=== PATIENT | male | born 1955 | race Caucasian/White ===

== ENCOUNTER 2016-09-12 15:06 | Emergency (ER) | payer OTHER ==
[~2016-09-12] VITALS: Ht 170.2 cm; Wt 73.7 kg
[2016-09-12 15:15] VITALS: BP 142/87; PULSE 89; RESP 18; TEMP 98.5; O2SAT 95
[2016-09-12] MEDS ORDERED: ASPI325T PO (16:02)
--- NOTE | 2016-09-12 16:23 | PD ---
HPI Chief Complaint: Oral / Dental Pain or Problem Time Seen by Provider: 16:22 Travel History International Travel<30 days: No Contact w/Intl Traveler<30days: No Traveled to known affect area: No History of Present Illness HPI 61 year old male presents to the ED for evaluation of less than 24 hours of dental pain and swelling in the jaw and neck. Patient states pain woke him up at 3 this morning. He endorses poor dentition. He denies fever or chills. Denies difficulties opening and closing the mouth or swallowing his own secretions. Denies difficulties breathing. States he went to the dentist today and was told that he could not be treated until the infection was resolved. Patient is a current smoker. No treatment attempted at home. Endorses allergy to penicillin. PFSH Past Medical History Cardiac Catheterization: Yes (STENT) Cardiovascular Problems: Yes Medical other: Yes (HYPOGLYCEMIA, HYPERLIPIDEMIA) Myocardial Infarction: Yes (x2) Tetanus Vaccination: Unknown Influenza Vaccination: No Past Surgical History Tonsillectomy: Yes Other Surgery: Yes (HERNIA REMOVAL) Social History Alcohol Use: Yes (SOCIALLY) Tobacco Use: Yes (1PPD) Substance Use: No Allergies-Medications (Allergen,Severity, Reaction): Coded Allergies: Penicillin (Verified Allergy, Severe, HIVES, 09/12/16) Latex (Verified Allergy, Intermediate, HIVES, 09/12/16) Reported Meds & Prescriptions Reported Meds & Active Scripts Active Magic Mouthwash Adult Liq (Multi-Ingredient Mouthwash/Gargle) 120 Ml Susp 5 Ml SWISH-SWAL ACHS PRN Each 5mL contains: Nystatin 200,000units, Diphenhydramine 4.25mg, Viscous Lidocaine 10mg, Galindo syrup 0.8 mL Ibuprofen 800 Mg Tab 800 Mg PO Q8H PRN Clindamycin (Clindamycin HCl) 300 Mg Cap 300 Mg PO Q6H 7 Days Reported Aspirin 325 Mg Tab 325 Mg PO DAILY Review of Systems Except as stated in HPI: all other systems reviewed are Neg Physical Exam Narrative GENERAL: Well-nourished, well-developed white male in no acute distress. SKIN: Warm and dry. HEAD: Normocephalic. Atraumatic. EYES: No scleral icterus. No injection or drainage. PERRLA. EOMI. ENT: Pearly watson tympanic membranes bilaterally. Nasal mucosa is moist. Oropharynx without erythema, edema or exudate. DENTAL: No malocclusion. Poor dentition overall. There is a dental caries and tooth 32. Mild erythema of the surrounding gingiva. Floor of mouth is soft. Uvula midline. Airway patent. NECK: Supple, trachea midline. Tender edema of the right anterior neck. Positive right-sided lymphadenopathy. CARDIOVASCULAR: Regular rate and rhythm without murmurs, gallops, or rubs. No carotid bruits. 2+ DP and radial pulses bilaterally. RESPIRATORY: Breath sounds clear and equal bilaterally. No accessory muscle use. GASTROINTESTINAL: Abdomen soft, non-tender, nondistended. + Bowel sounds MUSCULOSKELETAL: No cyanosis, or edema. Patient is ambulatory moves extremities spontaneously. BACK: Nontender without obvious deformity. No CVA tenderness. Data Data Last Documented VS Vital Signs Date Time Temp Pulse Resp B/P Pulse Ox O2 Delivery O2 Flow Rate FiO2 09/12/16 18:00 16 09/12/16 15:15 98.5 89 142/87 95 Orders Basic Metabolic Panel (Bmp) (09/12/16 16:28) Complete Blood Count With Diff (09/12/16 16:28) Blood Culture (09/12/16 16:28) Ct Soft Tiss Neck W Iv Cont (09/12/16 16:28) Iv Access Insert/Monitor (09/12/16 16:28) Clindamycin Inj (Cleocin Inj) (09/12/16 16:30) Sodium Chloride 0.9% Flush (Ns Flush) (09/12/16 16:30) Morphine Inj (Morphine Inj) (09/12/16 17:15) Dexamethasone Inj (Decadron Inj) (09/12/16 17:30) Labs Laboratory Tests Test 09/12/16 09/12/16 16:57 16:59 Sodium Level 140 MEQ/L Potassium Level 3.6 MEQ/L Chloride Level 105 MEQ/L Carbon Dioxide Level 27.2 MEQ/L Anion Gap 8 MEQ/L Blood Urea Nitrogen 9 MG/DL Creatinine 1.00 MG/DL Estimat Glomerular Filtration 75 ML/MIN Rate Random Glucose 102 MG/DL Calcium Level 8.4 MG/DL White Blood Count 11.0 TH/MM3 Red Blood Count 4.44 MIL/MM3 Hemoglobin 14.1 GM/DL Hematocrit 40.5 % Mean Corpuscular Volume 91.2 FL Mean Corpuscular Hemoglobin 31.9 PG Mean Corpuscular Hemoglobin 35.0 % Concent Red Cell Distribution Width 13.4 % Platelet Count 222 TH/MM3 Mean Platelet Volume 7.2 FL Neutrophils (%) (Auto) 64.4 % Lymphocytes (%) (Auto) 20.8 % Monocytes (%) (Auto) 10.7 % Eosinophils (%) (Auto) 2.9 % Basophils (%) (Auto) 1.2 % Neutrophils # (Auto) 7.1 TH/MM3 Lymphocytes # (Auto) 2.3 TH/MM3 Monocytes # (Auto) 1.2 TH/MM3 Eosinophils # (Auto) 0.3 TH/MM3 Basophils # (Auto) 0.1 TH/MM3 CBC Comment DIFF FINAL Differential Comment MDM Medical Decision Making Medical Screen Exam Complete: Yes Emergency Medical Condition: Yes Differential Diagnosis Dental caries versus dental abscess versus deep space neck infection versus other Narrative Course 61 year old male presents to the ED for evaluation of less than 24 hours of dental pain and swelling in the jaw and neck. Patient states pain woke him up at 3 this morning. He endorses poor dentition. He denies fever or chills. Denies difficulties opening and closing the mouth or swallowing his own secretions. Denies difficulties breathing. States he went to the dentist today and was told that he could not be treated until the infection was resolved. Patient is a current smoker. Vitals reviewed. Physical exam a white male in no acute distress. There is significant swelling of the right sided jaw and neck. No trismus. There is dental caries in tooth 31 and a small amount of edema and erythema of the surrounding gingiva. Floor of the mouth is soft. Airway patent. Uvula midline. Positive right-sided LAD. IV was inserted. Labs and blood cultures were obtained. Patient was administered 900 milligrams clindamycin IV and IM Decadron. CBC: No leukocytosis or anemia. BMP: Unremarkable CT of the soft tissues of the neck reveals inflammation and lymphadenopathy without a distinct abscess. I discussed the results of the workup with the patient. He does report improvement of his symptoms on recheck. He is prescribed clindamycin 3 times a day 7 days, and a milligram ibuprofen 3 times a day when necessary, Magic mouthwash when necessary for pain. He is instructed to take all medication as prescribed, follow up with a dentist. We discussed reasons to return to the ED. He indicated understanding of the instructions and was amenable to plan of care. This patient is stable and discharged home. Diagnosis Primary Impression: Dental abscess Referrals: Dentist Patient Instructions: Dental Abscess (ED), General Instructions Additional Instructions: Rest, hydrate. Take all antibiotics as prescribed, even if your symptoms resolved during the course of treatment. 800 mg ibuprofen up to 3 times a day as needed for pain. Magic mouthwash as needed for pain. Follow-up with the dentist as discussed. Return to the ED for any urgent or emergent medical condition. Med/Other Pt SpecificInfo: Prescription(s) given Scripts Dfuryhvl-Yycsdisetsrrklt-Ioewakafk Liq (Magic Mouthwash Adult Liq)120 Ml Susp5 Ml SWISH-SWAL ACHS PRN (Mouth sores) #120 ML Ref 0 Each 5mL contains: Nystatin 200,000units, Diphenhydramine 4.25mg, Viscous Lidocaine 10mg, Galindo syrup 0.8 mL Prov:Zeb Jordan MD 09/12/16 Ibuprofen 800 Mg [id number] Mg PO Q8H PRN (Pain/Inflammation) #15 TAB Ref 0 Prov:Zeb Jordan MD 09/12/16 Clindamycin 300 Mg [id number] Mg PO Q6H 7 Days Ref 0 Prov:Zeb Jordan MD 09/12/16 Disposition: 01 DISCHARGE HOME Condition: Stable Elvi Abarca Sep 12, 2016 16:22
[2016-09-12] MEDS ORDERED: DEXAMETHASONE SOD PHOS 4 MG/ML VIAL IM ONE (16:30)
[2016-09-12] MEDS ORDERED: SODIUM CHLORIDE 0.9% FLUSH 5 ML FLUSH IVF PRN (16:30)
[2016-09-12] MEDS ORDERED: CLINDAMYCIN INJ 900 MG in SODIUM CHLORIDE 0.9% INJ 100 ML IV ONE (16:30)
[2016-09-12 17:12] LABS: AUTOMATED NEUTROPHIL # 7.1 TH/MM3 (1.8-7.7); BASOPHIL # 0.1 TH/MM3 (0-0.2); BASOPHIL % 1.2 % (0.0-2.0); EOSINOPHIL # 0.3 TH/MM3 (0-0.4); EOSINOPHIL % 2.9 % (0.0-4.0); HEMATOCRIT 40.5 % (39.0-51.0); LYMPH % 20.8 % (9.0-44.0); LYMPHOCYTE # 2.3 TH/MM3 (1.0-4.8); MEAN CELL VOLUME 91.2 FL (80.0-100.0); MEAN CORPUSCULAR HEMOGLOBIN 31.9 PG (27.0-34.0); MONO % 10.7 % (0.0-8.0); NEUT % 64.4 % (16.0-70.0); PLATELET COUNT 222 TH/MM3 (150-450); RED BLOOD COUNT 4.44 MIL/MM3 (4.50-5.90); RED CELL DISTRIBUTION WIDTH 13.4 % (11.6-17.2)
[2016-09-12 17:14] LABS: HEMO FLAGS DIFF FINAL
[2016-09-12] MEDS ORDERED: MORPHINE SULFATE 4 MG/ML INJ IV PUSH ONE (17:15)
[2016-09-12] MEDS ORDERED: DEXAMETHASONE SOD PHOS 20 MG/5 ML VIAL IV PUSH ONE (17:30)
[2016-09-12 17:37] LABS: POTASSIUM 3.6 MEQ/L (3.5-5.1)
[2016-09-12 17:39] LABS: BICARBONATE 27.2 MEQ/L (21.0-32.0)
[2016-09-12] MEDS ORDERED: IBUP800T23 PO (17:52)
[2016-09-12] MEDS ORDERED: CLIN1CAP6 PO (17:52)
[2016-09-12 18:00] VITALS: RESP 16
--- NOTE | 2016-09-12 18:24 | RADHPO ---
EXAM DATE/TIME: 09/12/2016 17:51 [facility] COMPARISON: No previous studies available for comparison. INDICATIONS : Right sided dental abscess. IV CONTRAST: 96 cc Omnipaque 350 (iohexol) IV RADIATION DOSE: 14.9 CTDIvol (mGy) MEDICAL HISTORY : Myocardial infarction. SURGICAL HISTORY : Tonsillectomy. Coronary artery stent. ENCOUNTER: Initial ACUITY: 1 day PAIN SCALE: 8/10 LOCATION: Right neck TECHNIQUE: Volumetric scanning of the neck was performed. Using automated exposure control and adjustment of th e mA and/or kV according to patient size, radiation dose was kept as low as reasonably achievable to obtain optimal diagnostic quality images. FINDINGS: NASOPHARYNX: The nasopharyngeal airway has a normal configuration. No mucosal thickening or mass is seen. OROPHARYNX: The intrinsic muscles of the tongue are symmetric. The tonsillar pillars are intact. The prevertebr al soft tissues are not thickened. LARYNX: The supraglottic, glottic, and infraglottic structures are intact. PARAPHARYNGEAL: The parapharyngeal space is intact. SALIVARY GLANDS: The parotid and submandibular glands are intact. LYMPH NODES: No enlarged or necrotic-appearing nodes. There are bilateral cervical chain nodes which appear reacti ve. THYROID: Homogeneous enhancement without evidence of nodule. BONES: There is diffuse soft tissue swelling over the right side of the mandible with indistinctness. There is no distinct focal abscess. There are no drainable fluid collections. The mandible is intact with n o definite destructive change. There are several missing teeth. CONCLUSION: 1. Soft tissue swelling over the mandible with no definable abscess. 2. Scattered reactive cervical chain nodes. Varun David MD on September 12, 2016 at 18:18 Board Certified Radiologist. This report was verified electronically.
[2016-09-12] MEDS ORDERED: MAGICADU2 SWISH-SWAL (18:31)
[2016-09-12 18:45] VITALS: BP 140/86
[2016-09-12] MEDS ORDERED: IOHEXOL 350 MG/ML 10 ML VIAL (for RAD DIAG) IV ONE (19:33)
== END 2016-09-12 18:46 | disposition home or self-care (01) ==
LOC: PHED 15:06 → PHEFT 18:46
DX: K04.7 Periapical abscess without sinus (principal); K02.9 Dental caries, unspecified; F17.210 Nicotine dependence, cigarettes, uncomplicated
CPT/HCPCS: 70491; 80048; 85025; 87040; 96365; 96375; 99283; J1100; J2270; Q9967

== ENCOUNTER 2016-09-15 15:06 | Emergency (ER) | payer OTHER ==
[~2016-09-15] VITALS: Ht 170.2 cm; Wt 71.6 kg
[~2016-09-15 15:06] MED LIST: ASPI325T PO; CLIN1CAP6 PO; IBUP800T23 PO; MAGICADU2 SWISH-SWAL
[2016-09-15 15:26] VITALS: BP 141/85; PULSE 91; RESP 18; TEMP 99.1; O2SAT 97
[2016-09-15] MEDS ORDERED: DEXAMETHASONE SOD PHOS 4 MG/ML VIAL IM ONE (16:45)
[2016-09-15] MEDS ORDERED: MORPHINE SULFATE 4 MG/ML INJ IM ONE (16:45)
[2016-09-15] MEDS ORDERED: NORC5TAB PO (16:51)
[2016-09-15] MEDS ORDERED: DOXY100C PO (16:51)
--- NOTE | 2016-09-15 16:51 | PD ---
HPI Chief Complaint: Facial Pain or Swelling Time Seen by Provider: 16:07 Travel History International Travel<30 days: No Contact w/Intl Traveler<30days: No Traveled to known affect area: No History of Present Illness HPI Patient is a 61-year-old male presents emergency department for a second evaluation of dental swelling and abscess. Patient states that he was told by his dentist that he should come for an appointment but he cannot do anything until the infection is resolved. Patient states he was initially given some IV antibiotics and some steroids which made him feel better and he went home. He is requesting the same thing done today. Patient initially tells me he is unable to speak and his gives his history but he continues to interrupt and add history as his is talking. He appears well in no obvious distress. States the swelling has waxing and waning since is discharged 3 days ago. He did have a CAT scan as well as some basic labs at that time which showed no significant fluid collection. He denies any trismus or difficulty swallowing or chest pain. PFSH Past Medical History Cardiac Catheterization: Yes (STENT) Cardiovascular Problems: Yes Diminished Hearing: No Myocardial Infarction: Yes (x2) Influenza Vaccination: No ?: Not Past Surgical History Tonsillectomy: Yes Other Surgery: Yes (HERNIA REMOVAL) Social History Alcohol Use: Yes (SOCIALLY) Tobacco Use: Yes (1PPD) Substance Use: No Allergies-Medications (Allergen,Severity, Reaction): Coded Allergies: Penicillin (Verified Allergy, Severe, HIVES, 09/17/16) Latex (Verified Allergy, Intermediate, HIVES, 09/17/16) Reported Meds & Prescriptions Reported Meds & Active Scripts Active Clindamycin (Clindamycin HCl) 300 Mg Cap 300 Mg PO Q6H Oxycodone-Acetaminophen 5-325 mg Tab 1 Tab PO Q4H PRN Review of Systems Except as stated in HPI: all other systems reviewed are Neg Physical Exam Narrative GENERAL: Well-nourished, well-developed patient. Some mild swelling to the right side of his face. SKIN: Warm and dry. HEAD: Normocephalic. EYES: No scleral icterus. No injection or drainage. ENT: There is significant gingival disease without discrete abscess. There is some swelling on the right mandibular aspect of his soft tissues. There is no visible or palpable area of fluctuance. No sublingual tenderness. No erythema on the neck, swallows intact and nontender. NECK: Supple, trachea midline. No JVD or lymphadenopathy. CARDIOVASCULAR: Regular rate and rhythm without murmurs, gallops, or rubs. RESPIRATORY: Breath sounds equal bilaterally. No accessory muscle use. GASTROINTESTINAL: Abdomen soft, non-tender, nondistended. MUSCULOSKELETAL: No cyanosis, or edema. BACK: Nontender without obvious deformity. No CVA tenderness. Data Data Last Documented VS Orders Dexamethasone Inj (Decadron Inj) (09/15/16 16:45) Morphine Inj (Morphine Inj) (09/15/16 16:45) MDM Medical Decision Making Medical Screen Exam Complete: Yes Emergency Medical Condition: Yes Differential Diagnosis Dental abscess, dental cellulitis, poor dentition, periapical abscess. Narrative Course Is here and she has quickly examined the patient and give me her impression that the swelling has not changed at all since she saw the patient 3 days ago. Patient was given antibiotics as well as steroids in the emergency department and urged to follow up with his dentist. His tells me that they don't have any money to do so and I have explained that they need to because dentists handle these type of infectious on an outpatient basis. He is feeling better prior to discharge. Discussed with him any increase in swelling or fever should round return to the emergency department. I did offer the patient a repeat CT scan but my opinion is if Ms. Abarca thinks that the abscess is not progressed that this is unlikely to be of diagnostic benefits. He agrees to defer this at this time per Diagnosis Primary Impression: Dental abscess Med/Other Pt SpecificInfo: Prescription(s) given Disposition: DISCHARGE HOME Condition: Stable Shahzad Monteiro MD Sep 15, 2016 16:51
== END 2016-09-15 17:51 | disposition home or self-care (01) ==
LOC: PHED 15:06
DX: K04.7 Periapical abscess without sinus (principal); I25.2 Old myocardial infarction; F17.210 Nicotine dependence, cigarettes, uncomplicated
CPT/HCPCS: J1100; J2270; 96372

== ENCOUNTER 2016-09-17 14:09 | Inpatient (IN) | payer OTHER ==
[~2016-09-17] VITALS: Ht 165.1 cm; Wt 64.3 kg
[~2016-09-17 14:09] MED LIST changes: +DOXY100C PO; +NORC5TAB PO
[2016-09-17 14:11] VITALS: BP 145/80; PULSE 91; RESP 18; TEMP 97.6; O2SAT 96
--- NOTE | 2016-09-17 15:10 | PD ---
HPI Chief Complaint: Oral / Dental Pain or Problem Time Seen by Provider: 15:00 Travel History International Travel<30 days: No Contact w/Intl Traveler<30days: No Traveled to known affect area: No History of Present Illness HPI 61-year-old male presents for evaluation of worsening dental infection. Symptoms initially started 5 days ago. He was seen at [place] and had lab work , CT of the soft tissue of the neck which revealed soft tissue swelling with no discrete abscess. He was started on clindamycin. Initially seemed to have some improvement but then got worse. He was seen again on September 15 and started on doxycycline. Since then the symptoms have worsened. He made an appointment with the dentist and when he went to the office today they recommended that he go to see an oral surgeon Dr. Plaza. Dr. Plaza's office called them and told them to come to the emergency room for IV antibiotic therapy. He has pain in the right mandibular molar region which is throbbing, constant, worse with palpation, associated with trismus. He has had no fevers or chills. He has been using the medication as prescribed. No other complaints. PFSH Past Medical History Cardiac Catheterization: Yes (STENT) Cardiovascular Problems: Yes Diminished Hearing: No Myocardial Infarction: Yes (x2) Past Surgical History Tonsillectomy: Yes Other Surgery: Yes (HERNIA REMOVAL) Social History Alcohol Use: Yes (SOCIALLY) Tobacco Use: Yes (1PPD) Substance Use: No Allergies-Medications (Allergen,Severity, Reaction): Coded Allergies: Penicillin (Verified Allergy, Severe, HIVES, 09/17/16) Latex (Verified Allergy, Intermediate, HIVES, 09/17/16) Reported Meds & Prescriptions Reported Meds & Active Scripts Active Doxycycline Hyclate 100 Mg Cap 100 Mg PO BID 7 Days Clindamycin (Clindamycin HCl) 300 Mg Cap 300 Mg PO Q6H 7 Days Review of Systems Except as stated in HPI: all other systems reviewed are Neg Physical Exam Narrative GENERAL: Well-developed well-nourished male in no acute distress SKIN: Warm and dry. HEAD: Atraumatic. Normocephalic. EYES: Pupils equal and round. No scleral icterus. No injection or drainage. ENT: No nasal bleeding or discharge. Mucous membranes pink and moist. Right- sided submandibular and gingival erythema, induration, fluctuance, tender to palpation, associated with significant dental decay and trismus. There is no stridor or drooling. No sublingual swelling. NECK: Trachea midline. No JVD. No lymphadenopathy. CARDIOVASCULAR: Regular rate and rhythm. No murmur appreciated. RESPIRATORY: No accessory muscle use. Clear to auscultation. Breath sounds equal bilaterally. GASTROINTESTINAL: Abdomen soft, non-tender, nondistended. MUSCULOSKELETAL: No obvious deformities. NEUROLOGICAL: Awake and alert. No obvious cranial nerve deficits. Motor grossly within normal limits. Normal speech. PSYCHIATRIC: Appropriate mood and affect; insight and judgment normal. Data Data Last Documented VS Vital Signs Date Time Temp Pulse Resp B/P Pulse Ox O2 Delivery O2 Flow Rate FiO2 09/17/16 17:24 99.5 96 23 143/88 09/17/16 14:11 96 Orders Complete Blood Count With Diff (09/17/16 15:06) Comprehensive Metabolic Panel (09/17/16 15:06) Prothrombin Time / Inr (Pt) (09/17/16 15:06) Act Partial Throm Time (Ptt) (09/17/16 15:06) Lactic Acid Sepsis Protocol (09/17/16 15:06) Blood Culture (09/17/16 15:06) Ct Soft Tiss Neck W Iv Cont (09/17/16 ) Tetanus/Diphtheria Tox Adult (Tetanus/Di (09/17/16 17:30) Clindamycin Inj (Cleocin Inj) (09/17/16 17:30) Sodium Chlor 0.9% 1000 Ml Inj (Ns 1000 M (09/17/16 17:30) Iohexol 350 Inj (Omnipaque 350 Inj) (09/17/16 17:36) Labs Laboratory Tests Test 09/17/16 15:31 White Blood Count 13.6 TH/MM3 Red Blood Count 4.56 MIL/MM3 Hemoglobin 14.3 GM/DL Hematocrit 41.3 % Mean Corpuscular Volume 90.7 FL Mean Corpuscular Hemoglobin 31.5 PG Mean Corpuscular Hemoglobin 34.7 % Concent Red Cell Distribution Width 14.2 % Platelet Count 250 TH/MM3 Mean Platelet Volume 7.5 FL Neutrophils (%) (Auto) 67.9 % Lymphocytes (%) (Auto) 18.1 % Monocytes (%) (Auto) 10.8 % Eosinophils (%) (Auto) 2.6 % Basophils (%) (Auto) 0.6 % Neutrophils # (Auto) 9.2 TH/MM3 Lymphocytes # (Auto) 2.5 TH/MM3 Monocytes # (Auto) 1.5 TH/MM3 Eosinophils # (Auto) 0.3 TH/MM3 Basophils # (Auto) 0.1 TH/MM3 CBC Comment DIFF FINAL Differential Comment Prothrombin Time 10.1 SEC Prothromb Time International 0.9 RATIO Ratio Activated Partial 31.8 SEC Thromboplast Time Sodium Level 136 MEQ/L Potassium Level 3.4 MEQ/L Chloride Level 101 MEQ/L Carbon Dioxide Level 27.4 MEQ/L Anion Gap 8 MEQ/L Blood Urea Nitrogen 16 MG/DL Creatinine 0.78 MG/DL Estimat Glomerular Filtration 101 ML/MIN Rate Random Glucose 98 MG/DL Lactic Acid Level 0.8 mmol/L Calcium Level 9.3 MG/DL Total Bilirubin 0.2 MG/DL Aspartate Amino Transf 13 U/L (AST/SGOT) Alanine Aminotransferase 20 U/L (ALT/SGPT) Alkaline Phosphatase 102 U/L Total Protein 7.2 GM/DL Albumin 3.5 GM/DL MDM Medical Decision Making Medical Screen Exam Complete: Yes Emergency Medical Condition: Yes Medical Record Reviewed: Yes Differential Diagnosis Dental infection told outpatient therapy, periodontal abscess, submandibular abscess, ludwigs Narrative Course 61-year-old male presents with worsening dental infection despite currently being on clindamycin and doxycycline. The patient was initially seen in triage were basic lab work, blood cultures, CT soft tissue neck has been ordered. The patient will be moved to a medical bed when one becomes available. Anil Tinoco Sep 17, 2016 15:10
[2016-09-17 15:57] LABS: AUTOMATED NEUTROPHIL # 9.2 TH/MM3 (1.8-7.7); BASOPHIL # 0.1 TH/MM3 (0-0.2); BASOPHIL % 0.6 % (0.0-2.0); EOSINOPHIL # 0.3 TH/MM3 (0-0.4); EOSINOPHIL % 2.6 % (0.0-4.0); HEMATOCRIT 41.3 % (39.0-51.0); HEMO FLAGS DIFF FINAL; LYMPH % 18.1 % (9.0-44.0); LYMPHOCYTE # 2.5 TH/MM3 (1.0-4.8); MEAN CELL VOLUME 90.7 FL (80.0-100.0); MEAN CORPUSCULAR HEMOGLOBIN 31.5 PG (27.0-34.0); MEAN CORPUSCULAR HGB CONC 34.7 % (32.0-36.0); MONO % 10.8 % (0.0-8.0); NEUT % 67.9 % (16.0-70.0); PLATELET COUNT 250 TH/MM3 (150-450); RED BLOOD COUNT 4.56 MIL/MM3 (4.50-5.90); RED CELL DISTRIBUTION WIDTH 14.2 % (11.6-17.2); WHITE BLOOD COUNT 13.6 TH/MM3 (4.0-11.0)
[2016-09-17 16:13] LABS: ALT (GPT) 20 U/L (12-78); ANION GAP 8 MEQ/L (5-15); AST (GOT) 13 U/L (15-37); BICARBONATE 27.4 MEQ/L (21.0-32.0); BLOOD UREA NITROGEN 16 MG/DL (7-18); CHLORIDE 101 MEQ/L (98-107); GLOMERULAR FILTRATION RATE 101 ML/MIN (>89); POTASSIUM 3.4 MEQ/L (3.5-5.1); SODIUM (NA) 136 MEQ/L (136-145)
[2016-09-17 16:15] LABS: ALKALINE PHOSPHATASE 102 U/L (45-117); TOTAL BILIRUBIN ADULT 0.2 MG/DL (0.2-1.0)
[2016-09-17 16:27] LABS: APTT (PATIENT) 31.8 SEC (24.3-30.1); INTERNATIONAL NORMALIZED RATIO 0.9 RATIO; PROTHROMBIN TIME - PATIENT 10.1 SEC (9.8-11.6)
[2016-09-17 17:24] VITALS: BP 143/88; PULSE 96; RESP 23; TEMP 99.5
[2016-09-17] MEDS ORDERED: CLINDAMYCIN INJ 600 MG in SODIUM CHLORIDE 0.9% INJ 100 ML IV ONE (17:30)
[2016-09-17] MEDS ORDERED: TETANUS/DIPHTHERIA TOXOID ADULT 0.5 ML VIAL IM ONE (17:30)
[2016-09-17] MEDS ORDERED: SODIUM CHLOR 0.9% 1000 ML INJ 1,000 ML IV ONE (17:30)
[2016-09-17] MEDS ORDERED: IOHEXOL 350 MG/ML 10 ML VIAL (for RAD DIAG) IV ONE (17:36)
--- NOTE | 2016-09-17 17:51 | RADRPT ---
EXAM DATE/TIME: 09/17/2016 17:34 [facility] COMPARISON: CT SOFT TISSUE NECK W CONTRAST, September 12, 2016, 17:51. INDICATIONS : Right facial swelling. Possible dental abscess. IV CONTRAST: 100 cc Omnipaque 350 (iohexol) IV RADIATION DOSE: 15.05 CTDIvol (mGy) MEDICAL HISTORY : Cardiovascular disease. SURGICAL HISTORY : Hernia ENCOUNTER: Initial ACUITY: 2 days PAIN SCALE: 7/10 LOCATION: Right facial TECHNIQUE: Volumetric scanning of the neck was performed. Using automated exposure control and adjustment of th e mA and/or kV according to patient size, radiation dose was kept as low as reasonably achievable to obtain optimal diagnostic quality images. FINDINGS: NASOPHARYNX: The nasopharyngeal airway has a normal configuration. No mucosal thickening or mass is seen. OROPHARYNX: The intrinsic muscles of the tongue are symmetric. The tonsillar pillars are intact. The prevertebr al soft tissues are not thickened. LARYNX: The supraglottic, glottic, and infraglottic structures are intact. PARAPHARYNGEAL: The parapharyngeal space is intact. SALIVARY GLANDS: The parotid and submandibular glands are intact. LYMPH NODES: Stable, likely reactive lymph nodes identified inferior to the right mandible and adjacent to the rig ht submandibular gland.. THYROID: Homogeneous enhancement without evidence of nodule. BONES: Unremarkable. SOFT TISSUES: Stable stranding and swelling of the right superficial soft tissues overlying the mandible and right neck region CONCLUSION: 1. Stable CT with imaging findings characteristic of a right-sided facial cellulitis and reactive aviva nopathy. 2. No drainable abscess. No significant change from prior. Coyr Medrano MD on September 17, 2016 at 17:44 Board Certified Radiologist. This report was verified electronically.
--- NOTE | 2016-09-17 18:04 | PD ---
Physical Exam Date Seen by Provider: Sep 17, 2016 Data Data Last Documented VS Vital Signs Date Time Temp Pulse Resp B/P Pulse Ox O2 Delivery O2 Flow Rate FiO2 09/17/16 17:24 99.5 96 23 143/88 09/17/16 14:11 96 Orders Complete Blood Count With Diff (09/17/16 15:06) Comprehensive Metabolic Panel (09/17/16 15:06) Prothrombin Time / Inr (Pt) (09/17/16 15:06) Act Partial Throm Time (Ptt) (09/17/16 15:06) Lactic Acid Sepsis Protocol (09/17/16 15:06) Blood Culture (09/17/16 15:06) Ct Soft Tiss Neck W Iv Cont (09/17/16 ) Tetanus/Diphtheria Tox Adult (Tetanus/Di (09/17/16 17:30) Clindamycin Inj (Cleocin Inj) (09/17/16 17:30) Sodium Chlor 0.9% 1000 Ml Inj (Ns 1000 M (09/17/16 17:30) Iohexol 350 Inj (Omnipaque 350 Inj) (09/17/16 17:36) Vancomycin Inj (Vancomycin Inj) (09/17/16 18:15) Labs Laboratory Tests Test 09/17/16 15:31 White Blood Count 13.6 TH/MM3 Red Blood Count 4.56 MIL/MM3 Hemoglobin 14.3 GM/DL Hematocrit 41.3 % Mean Corpuscular Volume 90.7 FL Mean Corpuscular Hemoglobin 31.5 PG Mean Corpuscular Hemoglobin 34.7 % Concent Red Cell Distribution Width 14.2 % Platelet Count 250 TH/MM3 Mean Platelet Volume 7.5 FL Neutrophils (%) (Auto) 67.9 % Lymphocytes (%) (Auto) 18.1 % Monocytes (%) (Auto) 10.8 % Eosinophils (%) (Auto) 2.6 % Basophils (%) (Auto) 0.6 % Neutrophils # (Auto) 9.2 TH/MM3 Lymphocytes # (Auto) 2.5 TH/MM3 Monocytes # (Auto) 1.5 TH/MM3 Eosinophils # (Auto) 0.3 TH/MM3 Basophils # (Auto) 0.1 TH/MM3 CBC Comment DIFF FINAL Differential Comment Prothrombin Time 10.1 SEC Prothromb Time International 0.9 RATIO Ratio Activated Partial 31.8 SEC Thromboplast Time Sodium Level 136 MEQ/L Potassium Level 3.4 MEQ/L Chloride Level 101 MEQ/L Carbon Dioxide Level 27.4 MEQ/L Anion Gap 8 MEQ/L Blood Urea Nitrogen 16 MG/DL Creatinine 0.78 MG/DL Estimat Glomerular Filtration 101 ML/MIN Rate Random Glucose 98 MG/DL Lactic Acid Level 0.8 mmol/L Calcium Level 9.3 MG/DL Total Bilirubin 0.2 MG/DL Aspartate Amino Transf 13 U/L (AST/SGOT) Alanine Aminotransferase 20 U/L (ALT/SGPT) Alkaline Phosphatase 102 U/L Total Protein 7.2 GM/DL Albumin 3.5 GM/DL [facility] Medical Record Reviewed: Yes Supervised Visit with JOSIAH: Yes Interpretation(s) Vital Signs Date Time Temp Pulse Resp B/P Pulse Ox O2 Delivery O2 Flow Rate FiO2 09/17/16 17:24 99.5 96 23 143/88 09/17/16 14:11 97.6 91 18 145/80 96 CBC & BMP Diagram 09/17/16 15:31 Differential Diagnosis Dental abscess, submandibular abscess, ludwigs angina, mandibular cellulitis Narrative Course I, Dr. Elias, have reviewed the advance practice practitioner's documentation and am in agreement, met with the patient face to face, made the diagnosis, and the medical decision making was done by me. *My assessment and Findings: Patient is a 61-year-old male with hx of CAD, htn, hyperlipidemia, who presents to the emergency room for the third time for evaluation of right-sided swelling of lower face as well as for dental infection. Patient reports that 5 days ago , he was seen in the emergency room as he developed increased swelling to his right lower face. Patient was started on clindamycin after lab work and studies were performed and was instructed to follow-up with a dentist. Patient reports that a few days later, her symptoms were progressing and getting worse, he'll return to the emergency room and was started on Keflex in addition to his clindamycin. Patient reports the symptoms have gotten progressively worse, he has had increased swelling to his right lower face. Reports that he went to a dentist today and was told to go to an oral surgeon as was nothing they could do with the swelling. Reports that he went to an oral surgeon, Dr. Plaza's office and was told to go to the emergency room for IV antibiotics. Patient reports that at this time, symptoms have been progressively worse, reports that he has had low-grade fevers, patient is here for admission for his dental abscess. WBC today is elevated 13.6 compared to 11.0 on September 12, 2016 Lactic acid is 0[address]8 CT of the neck today shows right sided facial cellulitis and reactive adenopathy. There is stable stranding and swelling the right superficial soft tissues underlying the mandible and right neck lesion. There is no drainable abscess. Patient was given an IV dose of clindamycin as well as vancomycin as he has an allergy to penicillin. We'll have patient minutes the hospital as this is his third visit to the emergency room with worsening symptoms on clindamycin Physician Communication Physician Communication Case reviewed with Dr. Harris who patient to service Diagnosis Primary Impression: Facial cellulitis Additional Impression: Dental abscess Admitting Information Admitting Physician Requests: Admit Patient Instructions: General Instructions Departure Forms: Tests/Procedures Geraldine Elias DO Sep 17, 2016 18:04
[2016-09-17] MEDS ORDERED: VANCOMYCIN INJ 1,100 MG in SODIUM CHLOR 0.9% 250 ML INJ 250 ML IV ONE (18:15)
[2016-09-17] MEDS ORDERED: MAGNESIUM HYDROXIDE SUSP 30 ML CUP PO PRN (18:45)
[2016-09-17] MEDS ORDERED: ACETAMINOPHEN 325 MG TAB PO PRN (18:45)
[2016-09-17] MEDS ORDERED: ONDANSETRON HCL 4 MG/2 ML VIAL IVP PRN (18:45)
[2016-09-17] MEDS ORDERED: NALOXONE HCL 0.4 MG/ML AMP IV PRN (18:45)
[2016-09-17] MEDS ORDERED: SODIUM CHLORIDE 0.9% FLUSH 10 ML FLUSH IV FLUSH PRN (18:45)
[2016-09-17 19:43] VITALS: BP 112/79; PULSE 81; RESP 18; O2SAT 97
[2016-09-17] MEDS: SODIUM CHLOR 0.9% 1000 ML INJ 1,000 ML IV SCH (20:07)
[2016-09-17] MEDS: SODIUM CHLORIDE 0.9% FLUSH 10 ML FLUSH IV FLUSH SCH (21:00)
[2016-09-17] MEDS ORDERED: POTASSIUM CHLORIDE 25 MEQ EFFERVESCENT TAB PO ONE (21:00)
--- NOTE | 2016-09-17 21:56 | MB ---
cc: BRUNA RYAN DDS DATE OF CONSULTATION: 09/17/2016 REASON FOR CONSULTATION: "My face is swollen and my tooth hurts." HISTORY OF PRESENT ILLNESS: Mr. Velazquez is a 61 year-old male with a history of CAD, hypertension and hyperlipidemia, who presented to the emergency room with a complaint of right-sided facial pain. The patient presented to the [facility] five days ago and was seen in the emergency room because he had developed increased swelling to the right face. The patient was started on clindamycin and had lab work and studies performed and was instructed to follow up with his dentist. The patient reports that a few days later his symptoms progressed and got worse. He returned to the emergency room where he was started on Keflex in addition to his clindamycin. The patient stated that the swelling got progressively worse and he presented to an oral surgeon, Dr. Gonzales who instructed the patient to go to the emergency room for heavy antibiotics. The patient was seen this evening by me, Dr. Ryan, oromaxillofacial surgeon, resting comfortably in bed in no acute distress. The patient was alert, oriented x3. The patient was speaking with a clear voice that was not muffled. Vital signs were stable at this time with no evidence of any fever. The patient denies any nausea, vomiting or fever at this time. PAST MEDICAL HISTORY 1. CAD 2. Hypertension 3. Lipidemia 4. Myocardial infarction twice. MEDICATIONS: The patient denies any medications at this time. ALLERGIES The patient has an ALLERGY TO LATEX AND PENICILLIN. SOCIAL HISTORY The patient admits to social alcohol use and uses tobacco approximately one pack per day and denies any substance abuse. PAST SURGICAL HISTORY: Tonsillectomy. Hernia removal. PHYSICAL EXAMINATION General: This is a well-nourished, well-developed male in no acute distress. Skin is warm and dry. Head is atraumatic and normocephalic. Eyes: Pupils were equal, round and reactive to light accommodation. Nose: The nasal complex is intact with no epistaxis or drainage. Ears: Ears are intact with no laceration or drainage. Maxillofacial exam: There is obvious moderate facial swelling to the lower right third of the face. There is brawny and painful induration of the submandibular spaces on the right side. There is erythema noted over in the right submandibular region. Patient's YARIEL is approximately 25, however, the patient is guarding due to pain. The patient does have trismus, tooth #30 is grossly decayed, and the vestibule adjacent to #30 is edematous and swollen. The floor of the mouth is not raised. The tongue is not elevated. The airway is patent. Neck: Trachea midline. There is no JVD. X-RAYS: Maxillofacial was completed and the conclusion of that maxillofacial CT was stable CT with imaging, characteristics of right-sided facial swelling and reactive adenopathy. No drainable abscess and no significant change from prior. ASSESSMENT This is a 61-year-old male with a right submandibular abscess secondary to grossly decayed tooth #30. PLAN The patient is to be taken to the operating room for surgical extraction of tooth #30 with incision and drainage of right submandibular abscess under general anesthesia tomorrow at 4 p.m. The patient is to be kept n.p.o. after breakfast after 7 a.m. Would recommend clindamycin 900 milligrams every 8 hours, and recommend steroid therapy and continue pain management. THALIA Calero/GUSTAVO /8:59 PM /9:35 PM
[2016-09-17 22:21] VITALS: BP 172/87; PULSE 80; RESP 18; TEMP 98.2; O2SAT 97
--- NOTE | 2016-09-17 23:21 | HHI.HP ---
HPI Service [facility] Hospitalists Primary Care Physician No Primary Care Physician Admission Diagnosis Facial cellulitis, Dental abscess Diagnoses: (1) Facial cellulitis (2) Dental abscess (3) Leukocytosis (4) Hypokalemia (5) CAD (coronary artery disease) (6) Tobacco abuse Chief Complaint: right facial swelling and pain Travel History International Travel<30 Days: No Contact w/Intl Traveler <30 Da: No Traveled to Known Affected Are: No History of Present Illness Written by Stacey Coyle, acting as scribe for Dr. Melvin on 09/17/16 at 23:21 Mr. Velazquez is a 61 -year-old male with a past medical history of coronary artery disease status post [place] with cardiac stents who presented to the emergency room on 09/17/2016 for evaluation of worsening dental infection. He was seen 09/12/16 at [place] and a CT of the neck revealed soft tissue swelling with no discrete abscess. He was started on clindamycin and discharged. He initially improved but then started worsening and on September 15 returned and was started on doxycycline. Symptoms continue to worsen and he went to the dentist today and was referred to an oral surgeon, Dr. Plaza. The oral surgeon recommended they come to the hospital for IV antibiotic therapy. The patient is seen in his hospital room. He was seen and evaluated by Dr. Galo koenig and oral surgery is planned for 09/18/16 at 4 p.m. and he is to be NPO starting at 7 a.m. the patient reports that he woke up at 3 AM on 2016 with severe pain in the right jawline. He states that he's had a couple of different antibiotics that were ineffective in resolving his symptoms and, instead, he's progressively gotten worse since then. He denies any fever, yellow or green phlegm or sputum, chills, nausea, vomiting, diarrhea, hematuria , dysuria, black or red stools, abdominal pain. He denies hypertension, diabetes mellitus, emphysema, CHF, irregular heart rhythm, liver or kidney problems, seizures, or problems with blood clots such as DVT, CVA, or PE. . Review of Systems Except as stated in HPI: all other systems reviewed are Neg Past Family Social History Past Medical History Coronary artery disease Coronary stent placed 12 years ago [place] 2 . Past Surgical History Cardiac catheterization with stent placement Hernia repair Tonsillectomy . Reported Medications Reported Meds & Active Scripts Active Doxycycline Hyclate 100 Mg Cap 100 Mg PO BID 7 Days Clindamycin (Clindamycin HCl) 300 Mg Cap 300 Mg PO Q6H 7 Days . Allergies: Coded Allergies: Penicillin (Verified Allergy, Severe, HIVES, 09/17/16) Latex (Verified Allergy, Intermediate, HIVES, 09/17/16) Active Ordered Medications Current Medications Tetanus/ Diphtheria Toxoids 0.5 ml 0.5 ml ONCE ONCE IM Last administered on 19:40; Start 09/17/16 at 17:30; Stop 09/17/16 at 17:31; Status DC Clindamycin Phosphate 600 mg/ Sodium Chloride 104 ml @ 208 mls/hr ONCE ONCE IV Last administered on 09/17/16 19:47; Start 09/17/16 at 17:30; Stop at 17:59; Status DC Sodium Chloride (NS 1000 ml Inj) 1,000 ml @ 999 mls/hr BOLUS ONCE IV Last administered on 09/17/16 19:39; Start 09/17/16 at 17:30; Stop 09/17/16 at 18:30 ; Status DC Iohexol 100 ml 100 ml STK-MED ONCE IV Last administered on 09/17/16 17:36; Start 09/17/16 at 17:36; Stop 09/17/16 at 17:37; Status DC Vancomycin HCl 1100 mg/Sodium Chloride 261 ml @ 250 mls/hr ONCE ONCE IV Last administered on 09/17/16 21:25; Start 09/17/16 at 18:15; Stop 09/17/16 at 19:17 ; Status DC Sodium Chloride (NS 1000 ml Inj) 1,000 ml @ 100 mls/hr Q10H IV Last administered on 09/17/16 20:07; Start 09/17/16 at 19:00 Sodium Chloride (NS Flush) 2 ml UNSCH PRN IV FLUSH FLUSH AFTER USING IV ACCESS ; Start 09/17/16 at 18:45 Sodium Chloride (NS Flush) 2 ml BID IV FLUSH ; Start 09/17/16 at 21:00 Acetaminophen (Tylenol) 650 mg Q4H PRN PO Fever, headache, Pain 1-4; Start at 18:45 Ondansetron HCl (Zofran Inj) 4 mg Q6H PRN IVP NAUSEA OR VOMITING; Start at 18:45 Magnesium Hydroxide (Milk Of Magnesia Liq) 30 ml Q12H PRN PO CONSTIPATION; Start 09/17/16 at 18:45 Naloxone HCl (Narcan Inj) 0.4 mg UNSCH PRN IV SEE LABEL COMMENTS; Start at 18:45 Potassium Bicarb/ Potassium Chloride 25 meq 25 meq ONCE ONCE PO Last administered on 09/17/16 21:50; Start 09/17/16 at 21:00; Stop 09/17/16 at 21:01 ; Status DC Clindamycin Phosphate/Sodium Chloride (Cleocin Inj/NS Inj) 106 ml @ 212 mls/hr Q8H IV ; Start 09/18/16 at 02:00 Methylprednisolone Sodium Succinate (SoluMEDROL INJ) 40 mg Q8HR IV PUSH Last administered on 09/18/16 00:08; Start 09/17/16 at 22:00 Pantoprazole Sodium (Protonix Inj) 40 mg Q24H IV PUSH Last administered on 09/18 00:08; Start 09/18/16 at 00:00 . Family History Family history of CAD No family history of anesthesia problems . Social History Tobacco: Smokes 1 pack per day Alcohol: Social alcohol use; occasionally - 1/2 glass of wine with dinner Illicit Drugs: Denies . Physical Exam Vital Signs Vital Signs Date Time Temp Pulse Resp B/P Pulse Ox O2 Delivery O2 Flow Rate FiO2 09/17/16 22:21 98.2 80 18 172/87 97 09/17/16 19:45 79 14 09/17/16 19:43 81 18 112/79 97 09/17/16 17:24 99.5 96 23 143/88 09/17/16 14:11 97.6 91 18 145/80 96 Physical Exam GENERAL: This is an older male patient, in no apparent distress. SKIN: No rashes, ecchymoses or lesions. Cool and dry. HEAD: Atraumatic. Normocephalic. EYES: No scleral icterus. No injection or drainage. ENT: Nose without bleeding, purulent drainage. Unable to visualize right gumline ; patient cannot open mouth wide enough due to pain. NECK: Trachea midline. No JVD. Swelling around right mandible. CARDIOVASCULAR: Regular rate and rhythm without murmurs, gallops, or rubs. RESPIRATORY: Clear to auscultation. Breath sounds equal bilaterally. No wheezes , rales, or rhonchi. GASTROINTESTINAL: Abdomen soft, non-tender, nondistended. No guarding. MUSCULOSKELETAL: Extremities without clubbing, cyanosis, or edema. No calf tenderness. NEUROLOGICAL: Awake and alert. Motor and sensory grossly within normal limits. Normal speech. . Laboratory Laboratory Tests Test 09/17/16 15:31 White Blood Count 13.6 Red Blood Count 4.56 Hemoglobin 14.3 Hematocrit 41.3 Mean Corpuscular Volume 90.7 Mean Corpuscular Hemoglobin 31.5 Mean Corpuscular Hemoglobin 34.7 Concent Red Cell Distribution Width 14.2 Platelet Count 250 Mean Platelet Volume 7.5 Neutrophils (%) (Auto) 67.9 Lymphocytes (%) (Auto) 18.1 Monocytes (%) (Auto) 10.8 Eosinophils (%) (Auto) 2.6 Basophils (%) (Auto) 0.6 Neutrophils # (Auto) 9.2 Lymphocytes # (Auto) 2.5 Monocytes # (Auto) 1.5 Eosinophils # (Auto) 0.3 Basophils # (Auto) 0.1 CBC Comment DIFF FINAL Differential Comment Prothrombin Time 10.1 Prothromb Time International 0.9 Ratio Activated Partial 31.8 Thromboplast Time Sodium Level 136 Potassium Level 3.4 Chloride Level 101 Carbon Dioxide Level 27.4 Anion Gap 8 Blood Urea Nitrogen 16 Creatinine 0.78 Estimat Glomerular Filtration 101 Rate Random Glucose 98 Lactic Acid Level 0.8 Calcium Level 9.3 Total Bilirubin 0.2 Aspartate Amino Transf 13 (AST/SGOT) Alanine Aminotransferase 20 (ALT/SGPT) Alkaline Phosphatase 102 Total Protein 7.2 Albumin 3.5 Date/Time Procedure Status Source Growth 09/17/16 15:30 Aerobic Blood Culture Received Blood Peripheral Pending 09/17/16 15:30 Anaerobic Blood Culture Received Blood Peripheral Pending Result Diagram: 09/17/16 1531 09/17/16 1531 Imaging Last Impressions Neck CT 09/17/16 0000 Signed Impressions: Service Date/Time: Saturday, September 17, 2016 17:34 - CONCLUSION: 1. Stable CT with imaging findings characteristic of a right-sided facial cellulitis and reactive adenopathy. 2. No drainable abscess. No significant change from prior. Cory Medrano MD . Assessment and Plan Problem List: (1) Dental abscess ICD Code: K04.7 Status: Acute (2) Facial cellulitis ICD Code: L03.211 Status: Acute (3) Leukocytosis ICD Code: D72.829 Status: Acute (4) Hypokalemia ICD Code: E87.6 Status: Acute (5) CAD (coronary artery disease) ICD Code: I25.10 Status: Chronic (6) Tobacco abuse ICD Code: Z72.0 Status: Acute Assessment and Plan Mr. Velazquez is a 61 -year-old male who presented to the emergency room on 2016 for evaluation of worsening dental infection despite outpatient antibiotic treatment. Dental infection/abscess/facial cellulitis - failed outpatient therapy - CT of neck shows right-sided facial cellulitis and reactive adenopathy. No drainable abscess identified and no significant change from prior neck CT. - Blood cultures 2 obtained; follow results - Patient is allergic to penicillin - Clindamycin given in ER IV - Normal saline IV fluid hydration at 100 cc per hour - Oral facial surgery consultation - Clindamycin, Methylprednisolone IV per OMFS - NPO after 7 a.m. for oral surgery 09/18/16 at 4 p.m. - Protonix 40 mg IV q24h for gastric mucosa protection Leukocytosis likely secondary to infection - WBC is 13.6 on admission with monocytosis, increased from 11.0 on 09/12/16 - Recheck CBC in a.m. and follow results Mild hypokalemia - Initial potassium 3.4 - Potassium replaced - Recheck BMP in a.m. and follow trends CAD - does not take any medications for this - will obtain a preoperative 12 lead EKG Tobacco abuse - Encourage cessation DVT prophylaxis - SCDs . This note was transcribed by shaun [Stacey Coyle]. I, Dr. Michael Melvin personally performed the history, physical exam, and medical decision making; and confirmed the accuracy of the information in the transcribed note. Authenticated by Dr. Michael Melvin on 09/17/16 at 2320 Discussed Condition With ER physician, RN, patient Physician Certification 2 Midnight Certification Type: Admission for Inpatient Services Order for Inpatient Services The services are ordered in accordance with Medicare regulations or non- Medicare payer requirements, as applicable. In the case of services not specified as inpatient-only, they are appropriately provided as inpatient services in accordance with the 2-midnight benchmark. Estimated LOS (days): 3 days is the estimated time the patient will need to remain in the hospital, assuming treatment plan goals are met and no additional complications. Post-Hospital Plan: Home Problem Qualifiers (1) CAD (coronary artery disease): Qualified Code: I25.10 - Coronary artery disease involving [place] coronary artery of [place] heart without angina pectoris Stacey Coyle Sep 17, 2016 23:21 Michael Melvin MD October 27, 2016 07:00
[2016-09-18] VITALS: BP 148/77; PULSE 79; RESP 18; TEMP 98.5; O2SAT 95
[2016-09-18] MEDS: methylPREDNISolone SOD SUCC 40 MG/1 ML VIAL IV PUSH SCH ×4 (00:08→20:55)
[2016-09-18] MEDS: PANTOPRAZOLE SODIUM 40 MG VIAL IV PUSH SCH ×2 (00:08→23:58)
[2016-09-18] MEDS: CLINDAMYCIN INJ 900 MG in SODIUM CHLORIDE 0.9% INJ 100 ML IV SCH ×3 (02:00→17:36)
[2016-09-18] MEDS: SODIUM CHLOR 0.9% 1000 ML INJ 1,000 ML IV SCH ×4 (05:00→17:13)
[2016-09-18 05:35] LABS: AUTOMATED NEUTROPHIL # 6.2 TH/MM3 (1.8-7.7); BASOPHIL % 0.5 % (0.0-2.0); EOSINOPHIL # 0.4 TH/MM3 (0-0.4); HEMATOCRIT 36.5 % (39.0-51.0); HEMO FLAGS DIFF FINAL; LYMPH % 24.2 % (9.0-44.0); LYMPHOCYTE # 2.6 TH/MM3 (1.0-4.8); MEAN CELL VOLUME 90.3 FL (80.0-100.0); MEAN CORPUSCULAR HGB CONC 34.4 % (32.0-36.0); MONO % 12.3 % (0.0-8.0); PLATELET COUNT 229 TH/MM3 (150-450); RED BLOOD COUNT 4.04 MIL/MM3 (4.50-5.90); RED CELL DISTRIBUTION WIDTH 14.1 % (11.6-17.2); WHITE BLOOD COUNT 10.6 TH/MM3 (4.0-11.0)
[2016-09-18 05:58] LABS: INTERNATIONAL NORMALIZED RATIO 0.9 RATIO; POTASSIUM 3.2 MEQ/L (3.5-5.1); PROTHROMBIN TIME - PATIENT 10.3 SEC (9.8-11.6)
[2016-09-18 08:00] VITALS: BP 127/67; PULSE 79; RESP 18; TEMP 98.7; O2SAT 95
[2016-09-18] MEDS: SODIUM CHLORIDE 0.9% FLUSH 10 ML FLUSH IV FLUSH SCH ×2 (08:22→20:55)
[2016-09-18 12:00] VITALS: BP_SYST 129; BP_SYST 142; BP_DIAS 69; BP_DIAS 75; PULSE 83; RESP 18; RESP 22; TEMP 98.5; O2SAT 100; O2SAT 96
[2016-09-18] MEDS ORDERED: NEOSTIGMINE 3 MG/3 ML SYR IV ONE (12:00)
[2016-09-18] MEDS ORDERED: PROPOFOL 200 MG/20 ML AMP IV ONE (12:00)
[2016-09-18] MEDS ORDERED: CHLORHEXIDINE GLUCONATE 0.12% 30 ML CUP ONE (14:17)
[2016-09-18] MEDS ORDERED: LIDOCAINE 1%/EPINEPHrine 1:100,000 SOLN 30 ML VIAL ONE (14:17)
[2016-09-18] MEDS ORDERED: LIDOCAINE 2%/EPINEPHrine 1:100,000 30ML MDV ONE (14:18)
[2016-09-18] MEDS ORDERED: BACITRACIN TOP OINT 15 GM TUBE ONE (14:18)
[2016-09-18] MEDS ORDERED: LIDOCAINE 1%/EPINEPHrine 1:100,000 SOLN 50 ML VIAL ONE (14:20)
--- NOTE | 2016-09-18 14:51 | EKG ---
Date Performed: 09/18/2016 Time Performed: 08:14:38 PTAGE: 61 years EKG: Sinus rhythm MODERATE INTRAVENTRICULAR CONDUCTION DELAY BORDERLINE ECG NO PREVIOUS TRACING DOCTOR: Mamadou Zhang Interpretating Date/Time 09/18/2016 14:43:03
[2016-09-18] MEDS ORDERED: MIDAZOLAM HCL 2 MG/2 ML VIAL ONE (15:59)
[2016-09-18] MEDS ORDERED: DEXAMETHASONE SOD PHOS 4 MG/ML VIAL ONE (15:59)
[2016-09-18] MEDS ORDERED: ACETAMINOPHEN 1000 MG/100 ML VIAL IV ONE (15:59)
[2016-09-18 16:00] VITALS: BP 137/79; PULSE 83; RESP 18; TEMP 97.9; O2SAT 95
[2016-09-18] MEDS ORDERED: ARTIFICIAL TEARS OPTH OINT 3.5 APPLIC/3.5 GM TUBO ONE (16:12)
[2016-09-18] MEDS ORDERED: BUPIVACAINE/EPINEPHRINE 0.5% PF 30 ML VIAL ONE (16:13)
[2016-09-18] MEDS ORDERED: CLINDAMYCIN PHOS 900 MG/6 ML VIAL ONE (16:26)
[2016-09-18] MEDS ORDERED: Post-op Orders (for Pharmacy) MISC XX ONE (16:45)
[2016-09-18] MEDS ORDERED: SODIUM CHLORIDE 0.9% FLUSH 10 ML FLUSH IV FLUSH PRN (16:45)
[2016-09-18] MEDS ORDERED: ONDANSETRON HCL 4 MG/2 ML VIAL IV PRN (16:45)
[2016-09-18] MEDS ORDERED: HYDROmorphone HCL PF 1 MG/ML VIAL IV PRN (16:45)
[2016-09-18] MEDS ORDERED: oxyCODONE/ACETAMINOPHEN 5 MG/325 MG TAB PO PRN (16:45)
[2016-09-18] MEDS ORDERED: diphenhydrAMINE HCL 25 MG CAP PO PRN (16:45)
[2016-09-18] MEDS ORDERED: fentaNYL CITRATE 250 MCG/5 ML AMP ONE (16:57)
[2016-09-18] MEDS ORDERED: DO NOT ADM ANY ANTICOAGULANT DRUGS XX PRN ×2 (17:30)
[2016-09-18] MEDS: POTASSIUM CHLORIDE 10 MEQ CONTROLLED RELEASE TAB PO ONE ×2 (18:00→19:13)
[2016-09-18] MEDS ORDERED: POTASSIUM CHLORIDE 10 MEQ CONTROLLED RELEASE TAB PO ONE (18:00)
[2016-09-18 20:00] VITALS: BP 125/76; PULSE 70; RESP 20; TEMP 98.1; O2SAT 97
[2016-09-18] MEDS: DOCUSATE SODIUM 100 MG CAP PO SCH (20:55)
--- NOTE | 2016-09-18 21:26 | HHI.PR ---
Subjective Remarks Patient states pain is mild and usually controlled with current pain medications. denies fevers or chills denies cp/sob otherwise stable vital signs Objective Vitals Vital Signs Date Time Temp Pulse Resp B/P Pulse Ox O2 Delivery O2 Flow Rate FiO2 09/18/16 20:00 98.1 70 20 125/76 97 09/18/16 17:22 63 12 148/74 96 Nasal Cannula 2 09/18/16 17:15 59 14 147/81 96 Nasal Cannula 2 09/18/16 17:00 61 12 147/85 95 Nasal Cannula 2 09/18/16 16:50 98.1 79 15 160/89 93 Nasal Cannula 2 09/18/16 16:00 97.9 83 18 137/79 95 09/18/16 12:00 98.5 83 18 129/75 96 09/18/16 08:00 98.7 79 18 127/67 95 09/18/16 00:00 98.5 79 18 148/77 95 09/17/16 22:21 98.2 80 18 172/87 97 I/O 09/17/16 09/17/16 09/17/16 09/18/16 09/18/16 09/18/16 07:00 15:00 23:00 07:00 15:00 23:00 Intake Total 566 ml 1353 ml 475 ml 810 ml Output Total 10 ml Balance 566 ml 1353 ml 475 ml 800 ml Intake Oral 480 ml 60 ml 10 ml IV Total 566 ml 873 ml 415 ml Other 800 ml Output Estimated Blood Loss 10 ml # Voids 1 8 # Bowel Movements 0 0 Result Diagram: 09/18/16 0429 09/18/16 0429 Imaging Last Impressions Neck CT 09/17/16 0000 Signed Impressions: Service Date/Time: Saturday, September 17, 2016 17:34 - CONCLUSION: 1. Stable CT with imaging findings characteristic of a right-sided facial cellulitis and reactive adenopathy. 2. No drainable abscess. No significant change from prior. Cory Medrano MD Objective Remarks GENERAL: This is an older male patient, in no apparent distress. SKIN: No rashes, ecchymoses or lesions. Cool and dry. HEAD: Atraumatic. Normocephalic. EYES: No scleral icterus. No injection or drainage. ENT: Nose without bleeding, purulent drainage. Unable to visualize right gumline ; patient cannot open mouth wide enough due to pain. NECK: Trachea midline. No JVD. Swelling around right mandible. CARDIOVASCULAR: Regular rate and rhythm without murmurs, gallops, or rubs. RESPIRATORY: Clear to auscultation. Breath sounds equal bilaterally. No wheezes , rales, or rhonchi. GASTROINTESTINAL: Abdomen soft, non-tender, nondistended. No guarding. MUSCULOSKELETAL: Extremities without clubbing, cyanosis, or edema. No calf tenderness. NEUROLOGICAL: Awake and alert. Motor and sensory grossly within normal limits. Normal speech. Procedures Patient is status post surgical extraction of #32, incision and drainage of the right submandibular abscess Medications and IVs Current Medications Medications (Trade) Dose Ordered Sig/Jaun Route Start Time Stop Time Status Last Admin (Tylenol) 650 mg Q4H PRN PO 09/17/16 18:45 (Milk Of Magnesia Liq) 30 ml Q12H PRN PO 09/17/16 18:45 Naloxone HCl 0.4 mg 0.4 mg UNSCH PRN IV 09/17/16 18:45 (Cleocin Inj/NS Inj) 106 ml @ 212 mls/hr Q8H IV 09/18/16 02:00 09/18/16 08:19 (SoluMEDROL INJ) 40 mg Q8HR IV PUSH 09/17/16 22:00 09/18/16 20:55 Pantoprazole Sodium 40 mg 40 mg Q24H IV PUSH 09/18/16 00:00 09/18/16 00:08 (NS 1000 ml Inj) 1,000 ml @ 100 mls/hr Q10H IV 09/18/16 17:00 09/18/16 17:13 (NS Flush) 2 ml UNSCH PRN IV FLUSH 09/18/16 16:45 (NS Flush) 2 ml BID IV FLUSH 09/18/16 21:00 09/18/16 20:55 (Percocet 5-325 Mg) 1 tab Q4H PRN PO 09/18/16 16:45 (Percocet 5-325 Mg) 2 tab Q4H PRN PO 09/18/16 16:45 09/18/16 18:50 (Dilaudid Pf Inj) 1 mg Q2H PRN IV 3/23/17 16:45 09/18/16 20:45 (Zofran Inj) 4 mg Q4H PRN IV 09/18/16 16:45 (Colace) 100 mg BID PO 09/18/16 21:00 (Benadryl) 25 mg Q6H PRN PO 09/18/16 16:45 Miscellaneous Information ALL NURSING DEPARTME... UNSCH PRN XX 09/18/16 17:30 09/19/16 17:29 Miscellaneous Information ALL NURSING DEPARTME... UNSCH PRN XX 09/18/16 17:30 09/19/16 17:29 A/P Problem List: (1) Sepsis ICD Code: A41.9 Status: Acute Plan: Sepsis present on admission, patient with heart rate above 90 bpm, leukocytosis of 13 K and some submandibular abscess. Patient was admitted to the medical floor and started on IV antibiotics. Next I continue IV antibiotics, patient currently on IV clindamycin. Patient also on IV Solu-Medrol. Patient is status post surgical extraction of tooth and drainage of right submandibular abscess. Appreciate dental assistance, will continue to follow recommendations. Blood cultures negative so far, Gram stain from abscess material still pending. (2) Dental abscess ICD Code: K04.7 Status: Acute Plan: As above. (3) Facial cellulitis ICD Code: L03.211 Status: Acute Plan: As above. (4) Leukocytosis ICD Code: D72.829 Status: Acute Plan: Leukocytosis likely secondary to early sepsis secondary to right similar abscess. Leukocytosis improving. Continue to monitor CBC with differential. (5) Hypokalemia ICD Code: E87.6 Status: Acute Plan: We'll place with oral potassium and continue to monitor BMP. (6) CAD (coronary artery disease) ICD Code: I25.10 Status: Chronic Plan: CAD seems to be stable. Patient without any chest pain. 12-lead EKG obtained showed sinus rhythm with a ventricular rate of 79 bpm with moderate intraventricular conduction delay, however no ST-T changes suggestive of active ischemia. (7) Tobacco abuse ICD Code: Z72.0 Status: Acute Plan: Counseled against smoking cessation. I will place on nicotine patch. Assessment and Plan GI prophylaxis: Continue Protonix which I will switch to oral. DVT prophylaxis: Continue SCDs. And encourage early ablation. Discussed with patient and RN. Discharge Planning Possible discharge in a.m., pending dental clearance. Problem Qualifiers (1) CAD (coronary artery disease): Qualified Code: I25.10 - Coronary artery disease involving [place] coronary artery of [place] heart without angina pectoris Moiz Choudhary MD Sep 18, 2016 21:26
[2016-09-18] MEDS: oxyCODONE/ACETAMINOPHEN 5 MG/325 MG TAB PO PRN (23:54)
[2016-09-19] VITALS: BP 141/74; PULSE 66; RESP 18; TEMP 96.8; O2SAT 98
[2016-09-19] MEDS ORDERED: CLINDAMYCIN INJ 900 MG in SODIUM CHLORIDE 0.9% INJ 50 ML IV SCH ×2
[2016-09-19 00:27] VITALS: O2SAT 93
[2016-09-19] MEDS: CLINDAMYCIN INJ 900 MG in SODIUM CHLORIDE 0.9% INJ 100 ML IV SCH ×2 (02:57→09:13)
[2016-09-19 04:00] VITALS: BP 147/79; PULSE 69; RESP 20; TEMP 96.4; O2SAT 96
[2016-09-19 04:31] LABS: AUTOMATED NEUTROPHIL # 7.5 TH/MM3 (1.8-7.7); BASOPHIL # 0.1 TH/MM3 (0-0.2); HEMATOCRIT 35.3 % (39.0-51.0); HEMO FLAGS DIFF FINAL; LYMPH % 21.7 % (9.0-44.0); LYMPHOCYTE # 2.5 TH/MM3 (1.0-4.8); MEAN CELL VOLUME 90.3 FL (80.0-100.0); MEAN CORPUSCULAR HEMOGLOBIN 30.9 PG (27.0-34.0); MEAN CORPUSCULAR HGB CONC 34.2 % (32.0-36.0); MONO % 10.6 % (0.0-8.0); NEUT % 66.7 % (16.0-70.0); PLATELET COUNT 270 TH/MM3 (150-450); RED CELL DISTRIBUTION WIDTH 14.2 % (11.6-17.2); WHITE BLOOD COUNT 11.3 TH/MM3 (4.0-11.0)
[2016-09-19] MEDS: methylPREDNISolone SOD SUCC 40 MG/1 ML VIAL IV PUSH SCH (05:43)
[2016-09-19 08:00] VITALS: BP 170/82; PULSE 70; RESP 18; TEMP 98.4; O2SAT 94
[2016-09-19] MEDS: SODIUM CHLORIDE 0.9% FLUSH 10 ML FLUSH IV FLUSH SCH (08:49)
[2016-09-19] MEDS: DOCUSATE SODIUM 100 MG CAP PO SCH (08:49)
[2016-09-19] MEDS: oxyCODONE/ACETAMINOPHEN 5 MG/325 MG TAB PO PRN (09:09)
--- NOTE | 2016-09-19 10:58 | HHI.PR ---
Subjective Remarks denies fevers/chills denies abdominal pain denies diarrhea/rash patient wants to go home stable vital signs Objective Vitals Vital Signs Date Time Temp Pulse Resp B/P Pulse Ox O2 Delivery O2 Flow Rate FiO2 09/19/16 04:00 96.4 69 20 147/79 96 09/19/16 00:27 93 09/19/16 00:00 96.8 66 18 141/74 98 09/18/16 20:00 98.1 70 20 125/76 97 09/18/16 17:22 63 12 148/74 96 Nasal Cannula 2 09/18/16 17:15 59 14 147/81 96 Nasal Cannula 2 09/18/16 17:00 61 12 147/85 95 Nasal Cannula 2 09/18/16 16:50 98.1 79 15 160/89 93 Nasal Cannula 2 09/18/16 16:00 97.9 83 18 137/79 95 09/18/16 12:00 98.5 83 18 129/75 96 I/O 09/18/16 09/18/16 09/18/16 09/19/16 09/19/16 09/19/16 07:00 15:00 23:00 07:00 15:00 23:00 Intake Total 1353 ml 475 ml 1707 ml 1038 ml Output Total 10 ml Balance 1353 ml 475 ml 1697 ml 1038 ml Intake Oral 480 ml 60 ml 250 ml 320 ml IV Total 873 ml 415 ml 657 ml 718 ml Other 800 ml Output Estimated Blood Loss 10 ml # Voids 1 8 2 2 # Bowel Movements 0 0 0 0 Result Diagram: 09/19/16 0359 09/18/16 0429 Imaging Last Impressions Neck CT 09/17/16 0000 Signed Impressions: Service Date/Time: Saturday, September 17, 2016 17:34 - CONCLUSION: 1. Stable CT with imaging findings characteristic of a right-sided facial cellulitis and reactive adenopathy. 2. No drainable abscess. No significant change from prior. Cory Medrano MD Objective Remarks GENERAL: This is an older male patient, in no apparent distress. SKIN: No rashes, ecchymoses or lesions. Cool and dry. HEAD: Atraumatic. Normocephalic. EYES: No scleral icterus. No injection or drainage. ENT: Nose without bleeding, purulent drainage. Unable to visualize right gumline ; patient cannot open mouth wide enough due to pain. NECK: Trachea midline. No JVD. Swelling around right mandible. CARDIOVASCULAR: Regular rate and rhythm without murmurs, gallops, or rubs. RESPIRATORY: Clear to auscultation. Breath sounds equal bilaterally. No wheezes , rales, or rhonchi. GASTROINTESTINAL: Abdomen soft, non-tender, nondistended. No guarding. MUSCULOSKELETAL: Extremities without clubbing, cyanosis, or edema. No calf tenderness. NEUROLOGICAL: Awake and alert. Motor and sensory grossly within normal limits. Normal speech. Procedures Patient is status post surgical extraction of #32, incision and drainage of the right submandibular abscess Medications and IVs Current Medications Medications (Trade) Dose Ordered Sig/Jaun Route Start Time Stop Time Status Last Admin (Tylenol) 650 mg Q4H PRN PO 09/17/16 18:45 (Milk Of Magnesia Liq) 30 ml Q12H PRN PO 09/17/16 18:45 Naloxone HCl 0.4 mg 0.4 mg UNSCH PRN IV 09/17/16 18:45 (Cleocin Inj/NS Inj) 106 ml @ 212 mls/hr Q8H IV 09/18/16 02:00 09/19/16 09:13 (SoluMEDROL INJ) 40 mg Q8HR IV PUSH 09/17/16 22:00 09/19/16 05:43 Pantoprazole Sodium 40 mg 40 mg Q24H IV PUSH 09/18/16 00:00 09/18/16 23:58 (NS 1000 ml Inj) 1,000 ml @ 100 mls/hr Q10H IV 09/18/16 17:00 09/18/16 17:13 (NS Flush) 2 ml UNSCH PRN IV FLUSH 09/18/16 16:45 (NS Flush) 2 ml BID IV FLUSH 09/18/16 21:00 09/18/16 20:55 (Percocet 5-325 Mg) 1 tab Q4H PRN PO 09/18/16 16:45 09/19/16 09:09 (Percocet 5-325 Mg) 2 tab Q4H PRN PO 09/18/16 16:45 09/18/16 18:50 (Dilaudid Pf Inj) 1 mg Q2H PRN IV 09/18/16 16:45 09/18/16 20:45 (Zofran Inj) 4 mg Q4H PRN IV 09/18/16 16:45 (Colace) 100 mg BID PO 09/18/16 21:00 (Benadryl) 25 mg Q6H PRN PO 09/18/16 16:45 Miscellaneous Information ALL NURSING DEPARTME... UNSCH PRN XX 09/18/16 17:30 09/19/16 17:29 Miscellaneous Information ALL NURSING DEPARTME... UNSCH PRN XX 09/18/16 17:30 09/19/16 17:29 Urinary Catheter: No Vascular Central Line Catheter: No A/P Problem List: (1) Sepsis ICD Code: A41.9 Status: Acute Plan: Sepsis present on admission, patient with heart rate above 90 bpm, leukocytosis of 13 K and some submandibular abscess. Patient was admitted to the medical floor and started on IV antibiotics. Continue IV Clindamycin will discharge on oral clindamycin. Patient also on IV Solu-Medrol. Patient is status post surgical extraction of tooth and drainage of right submandibular abscess. Appreciate dental assistance, will continue to follow recommendations. Blood cultures negative so far, Gram stain from abscess material still pending. Dc IV fluids. (2) Dental abscess ICD Code: K04.7 Status: Acute Plan: As above. (3) Facial cellulitis ICD Code: L03.211 Status: Acute Plan: As above. (4) Leukocytosis ICD Code: D72.829 Status: Acute Plan: Leukocytosis likely secondary to early sepsis secondary to right similar abscess. Leukocytosis slightly elevated - possibly due to steroid use. Patient is afebrile and clinically improving. (5) Hypokalemia ICD Code: E87.6 Status: Acute Plan: SP oral replacement - fu BMP. (6) CAD (coronary artery disease) ICD Code: I25.10 Status: Chronic Plan: CAD seems to be stable. Patient without any chest pain. 12-lead EKG obtained showed sinus rhythm with a ventricular rate of 79 bpm with moderate intraventricular conduction delay, however no ST-T changes suggestive of active ischemia. (7) Tobacco abuse ICD Code: Z72.0 Status: Acute Plan: Counseled against smoking cessation. I will place on nicotine patch. Assessment and Plan GI prophylaxis: Continue Protonix which I will switch to oral. DVT prophylaxis: Continue SCDs. And encourage early ablation. Discussed with patient and RN. Discharge Planning Possible DC later today. Pending Dental clearance. Problem Qualifiers (1) CAD (coronary artery disease): Qualified Code: I25.10 - Coronary artery disease involving [place] coronary artery of [place] heart without angina pectoris Moiz Choudhary MD Sep 19, 2016 10:58
[2016-09-19] MEDS ORDERED: OXYC1TAB63 PO (11:02)
[2016-09-19] MEDS ORDERED: CLIN1CAP6 PO (11:02)
--- NOTE | 2016-09-19 11:02 | HHI.DCPOC ---
Discharge Care Plan Diagnosis: (1) Dental abscess (2) Facial cellulitis (3) Hypokalemia (4) CAD (coronary artery disease) (5) Leukocytosis (6) Tobacco abuse (7) Sepsis Goals to Promote Your Health * To prevent worsening of your condition and complications * To maintain your health at the optimal level Directions to Meet Your Goals Take your medications as prescribed Follow your dietary instruction Follow activity as directed Keep your appointments as scheduled Take your immunizations and boosters as scheduled If your symptoms worsen call your PCP, if no PCP go to Urgent Care Center or Emergency Room Smoking is Dangerous to Your Health. Avoid second hand smoke Call the 24-hour hour crisis hotline for domestic abuse at Moiz Choudhary MD Sep 19, 2016 11:02
[2016-09-19 11:51] LABS: BICARBONATE 22.6 MEQ/L (21.0-32.0)
[2016-09-19 12:00] VITALS: BP 165/83; PULSE 77; RESP 18; TEMP 96.6; O2SAT 94
[2016-09-19] MEDS ORDERED: SODIUM CHLOR 0.9% 250 ML INJ 250 ML IV ONE (12:00)
[2016-09-19] MEDS ORDERED: ONDANSETRON HCL 4 MG/2 ML VIAL IV PUSH ONE (12:00)
[2016-09-19] MEDS ORDERED: NICOTINE 21 MG/24 HR PATCH TD SCH (12:00)
--- NOTE | 2016-09-19 14:49 | HHI.PR ---
Subjective Remarks POD #1 for this 61yo male s/p extraction of tooth 30 and I&D of right submandibular abscess. Pt states he is doing much better and would like to go home. Vital signs stable. No complaints of nausea, fever or vomiting. Objective Vital Signs Date Time Temp Pulse Resp B/P Pulse Ox O2 Delivery O2 Flow Rate FiO2 09/19/16 12:00 96.6 77 18 165/83 94 09/19/16 08:00 98.4 70 18 170/82 94 09/19/16 04:00 96.4 69 20 147/79 96 09/19/16 00:27 93 09/19/16 00:00 96.8 66 18 141/74 98 09/18/16 20:00 98.1 70 20 125/76 97 09/18/16 17:22 63 12 148/74 96 Nasal Cannula 2 09/18/16 17:15 59 14 147/81 96 Nasal Cannula 2 09/18/16 17:00 61 12 147/85 95 Nasal Cannula 2 09/18/16 16:50 98.1 79 15 160/89 93 Nasal Cannula 2 09/18/16 16:00 97.9 83 18 137/79 95 I/O 09/18/16 09/18/16 09/18/16 09/19/16 09/19/16 09/19/16 07:00 15:00 23:00 07:00 15:00 23:00 Intake Total 1353 ml 475 ml 1707 ml 1038 ml Output Total 10 ml Balance 1353 ml 475 ml 1697 ml 1038 ml Intake Oral 480 ml 60 ml 250 ml 320 ml IV Total 873 ml 415 ml 657 ml 718 ml Other 800 ml Output Estimated Blood Loss 10 ml # Voids 1 8 2 2 # Bowel Movements 0 0 0 0 Result Diagram: 09/19/16 0359 09/19/16 1119 Objective Remarks Julia drain intact in the right mandible submandibular space. No active drainage noted. Edema has decreased compared to pre-op. Extraction site healing as expected. Hemostatic. Floor of mouth not raised. Airway patent. Assessment and Plan Assessment and Plan A: POD#1 s/p extraction of tooth 30 and I&D of right submandibular abscess P: [place] ld drain removed. DC with oral Clindamycin for another 7 days. Pain meds. F/u with Dr. Rosenthal on Thursday09/23/16. Pt has a business card. Discussed Condition With Pt and Nurse. Discharge Planning Today Beni Rosenthal DDS Sep 19, 2016 14:49
--- NOTE | 2016-09-19 14:53 | HHI.DS ---
Discharge Summary Admission Date Sep 17, 2016 at 19:08 Discharge Date: Sep 19, 2016 Admitting Diagnosis Facial cellulitis, Dental abscess (1) Sepsis ICD Code: A41.9 Diagnosis: Principal (2) Dental abscess ICD Code: K04.7 Diagnosis: Principal (3) Facial cellulitis ICD Code: L03.211 Diagnosis: Principal (4) Leukocytosis ICD Code: D72.829 Diagnosis: Principal (5) Hypokalemia ICD Code: E87.6 Diagnosis: Principal (6) CAD (coronary artery disease) ICD Code: I25.10 Diagnosis: Secondary (7) Tobacco abuse ICD Code: Z72.0 Diagnosis: Secondary Procedures Patient is status post surgical extraction of #32, incision and drainage of the right submandibular abscess Brief History - From Admission Mr. Velazquez is a 61 -year-old male with a past medical history of coronary artery disease status post [place] with cardiac stents who presented to the emergency room on 09/17/2016 for evaluation of worsening dental infection. He was seen 09/12/16 at [facility] and a CT of the neck revealed soft tissue swelling with no discrete abscess. He was started on clindamycin and discharged. He initially improved but then started worsening and on September 15 returned and was started on doxycycline. Symptoms continue to worsen and he went to the dentist today and was referred to an oral surgeon, Dr. Plaza. The oral surgeon recommended they come to the hospital for IV antibiotic therapy. The patient is seen in his hospital room. He was seen and evaluated by Dr. Galo koenig and oral surgery is planned for 09/18/16 at 4 p.m. and he is to be NPO starting at 7 a.m. the patient reports that he woke up at 3 AM on 2016 with severe pain in the right jawline. He states that he's had a couple of different antibiotics that were ineffective in resolving his symptoms and, instead, he's progressively gotten worse since then. He denies any fever, yellow or green phlegm or sputum, chills, nausea, vomiting, diarrhea, hematuria , dysuria, black or red stools, abdominal pain. He denies hypertension, diabetes mellitus, emphysema, CHF, irregular heart rhythm, liver or kidney problems, seizures, or problems with blood clots such as DVT, CVA, or PE. . CBC/BMP: 09/19/16 0359 09/19/16 1119 Significant Findings Laboratory Tests Test 09/17/16 09/18/16 09/19/16 09/19/16 15:31 04:29 03:59 11:19 White Blood Count 13.6 TH/MM3 11.3 TH/MM3 (4.0-11.0) (4.0-11.0) Monocytes (%) (Auto) 10.8 % 12.3 % 10.6 % (0.0-8.0) (0.0-8.0) (0.0-8.0) Neutrophils # (Auto) 9.2 TH/MM3 (1.8-7.7) Monocytes # (Auto) 1.5 TH/MM3 1.3 TH/MM3 1.2 TH/MM3 (0-0.9) (0-0.9) (0-0.9) Activated Partial 31.8 SEC Thromboplast Time (24.3-30.1) Potassium Level 3.4 MEQ/L 3.2 MEQ/L (3.5-5.1) (3.5-5.1) Aspartate Amino Transf 13 U/L (15-37) (AST/SGOT) Red Blood Count 4.04 MIL/MM3 3.90 MIL/MM3 (4.50-5.90) (4.50-5.90) Hemoglobin 12.5 GM/DL 12.1 GM/DL (13.0-17.0) (13.0-17.0) Hematocrit 36.5 % 35.3 % (39.0-51.0) (39.0-51.0) Creatinine 0.57 MG/DL (0.60-1.30) Sodium Level 135 MEQ/L (136-145) Imaging Last Impressions Neck CT 09/17/16 0000 Signed Impressions: Service Date/Time: Saturday, September 17, 2016 17:34 - CONCLUSION: 1. Stable CT with imaging findings characteristic of a right-sided facial cellulitis and reactive adenopathy. 2. No drainable abscess. No significant change from prior. Cory Medrano MD PE at Discharge GENERAL: This is an older male patient, in no apparent distress. SKIN: No rashes, ecchymoses or lesions. Cool and dry. HEAD: Atraumatic. Normocephalic. EYES: No scleral icterus. No injection or drainage. ENT: Nose without bleeding, purulent drainage. Unable to visualize right gumline ; patient cannot open mouth wide enough due to pain. NECK: Trachea midline. No JVD. Swelling around right mandible. CARDIOVASCULAR: Regular rate and rhythm without murmurs, gallops, or rubs. RESPIRATORY: Clear to auscultation. Breath sounds equal bilaterally. No wheezes , rales, or rhonchi. GASTROINTESTINAL: Abdomen soft, non-tender, nondistended. No guarding. MUSCULOSKELETAL: Extremities without clubbing, cyanosis, or edema. No calf tenderness. NEUROLOGICAL: Awake and alert. Motor and sensory grossly within normal limits. Normal speech. Hospital Course (1) Sepsis Sepsis present on admission, patient with heart rate above 90 bpm, leukocytosis of 13 K and some submandibular abscess. Patient was admitted to the medical floor and started on IV antibiotics. Continue IV Clindamycin will discharge on oral clindamycin. Patient also on IV Solu-Medrol. Patient is status post surgical extraction of tooth and drainage of right submandibular abscess. Blood cultures negative, Gram stain from abscess material still pending. Dc IV fluids. (2) Dental abscess As above. (3) Facial cellulitis As above. (4) Leukocytosis Leukocytosis likely secondary to early sepsis secondary to right similar abscess. Leukocytosis slightly elevated - possibly due to steroid use. Patient is afebrile and clinically improving. (5) Hypokalemia SP oral replacement - fu BMP. (6) CAD (coronary artery disease) CAD seems to be stable. Patient without any chest pain. 12-lead EKG obtained showed sinus rhythm with a ventricular rate of 79 bpm with moderate intraventricular conduction delay, however no ST-T changes suggestive of active ischemia. (7) Tobacco abuse Counseled against smoking cessation. Started on nicotine patch. GI prophylaxis: Continue Protonix which I will switch to oral. DVT prophylaxis: Continue SCDs. And encourage early ablation. Pt Condition on Discharge: Stable Discharge Disposition: Discharge Home Discharge Time: <= 30 minutes Discharge Instructions DIET: Follow Instructions for: Soft Diet Activities you can perform: Regular-No Restrictions Follow up Referrals: Dental - 1 Week with Beni Rosenthal DDS PCP Follow-up - 2 Weeks New Medications: Clindamycin (Clindamycin) 300 Mg Cap 300 MG PO Q6H Infection #28 Ref 0 CAP Oxycodone-Acetaminophen (Oxycodone-Acetaminophen) 5-325 mg Tab 1 TAB PO Q4H PRN PAIN SCALE 1 TO 10 #30 TAB Discontinued Medications: Clindamycin (Clindamycin) 300 Mg Cap 300 MG PO Q6H Infection Days 7 Ref 0 CAP Doxycycline Hyclate (Doxycycline Hyclate) 100 Mg Cap 100 MG PO BID Infection Days 7 Ref 0 CAP Moiz Choudhary MD Sep 19, 2016 14:53
[2016-09-19] MEDS ORDERED: REMOVE OLD NICODERM (NICOTINE) PATCH TD SCH (21:00)
--- NOTE | 2016-09-22 12:35 | MP ---
cc: BRUNA RYAN DDS DATE OF 08/29/1954 DATE OF SURGERY 09/18/2016 PREOPERATIVE DIAGNOSIS Submandibular abscess secondary to gross decay of tooth #30. PROCEDURE Surgical extraction of tooth #30 with incision and drainage of submandibular abscess. POSTOPERATIVE DIAGNOSIS Surgical extraction of tooth #30 with incision and drainage of submandibular abscess. SURGEON Dr. Bruna Ryan ANESTHESIA General, ESTIMATED BLOOD LOSS Minimal. COMPLICATIONS None. INDICATIONS Mr. Velazquez is a 61-year-old male who presented to the [facility] for evaluation of right facial pain. This was Mr. Velazquez's third visit to the ER after presenting twice and given oral antibiotics which failed to resolve his facial swelling. The patient presented to an oral surgeon, Dr. Plaza, who told the patient to present to the [facility] for IV antibiotics. The patient was evaluated by Dr. Galo castellanos of Oral and Maxillofacial Surgeon and it was determined, based on clinical and radiographic exam, that the patient would need an incision and drainage and extraction of tooth number 30 under general anesthesia. The patient agreed and informed consent was discussed and obtained from the patient. All risks, benefits and complications of the treatment, non-treatment and all alternative treatments were discussed in depth with the patient. The risks include but are not limited to pain, swelling, infection, bleeding, damage to adjacent structures, root tip fractures, displacement of temporary and permanent numbness of the lower lip, teeth, tongue, chin, mucosal, jaw fracture or the need for further surgical procedure. The patient understood all risks and agreed to all procedures. All questions were answered preoperatively. PROCEDURE IN DETAIL On 09/18/2016 the patient was brought to the operating room and placed on the operating room table in a supine position. All anesthesia monitors and pads were placed on the patient. The patient was subsequently induced into general anesthesia via oral endotracheal intubation and IV medications. The patient was then prepped and draped in the usual oral and maxillofacial surgical fashion. The patient was anesthetized extra-orally and intraorally with approximately 5 cc of 2% lidocaine with 1:100 epinephrine on the right side. The surgeon's attention was then directed intraorally on the lower right quadrant were tooth #30 was visualized to be grossly decayed with a vestibular swelling. Tooth #30 was extracted using the standard surgical technique with elevators and forceps without any complications. The socket was curetted. It was noted approximately 5 cc of purulent material was noted from the extraction socket. The surgeon's attention was then directed extra-orally where a 5-mm incision was made just below the inferior border of the mandible in the submandibular region. A blunt hemostat was then used to dissect on the buccal side of the mandible and approximately 25 cc of purulent material drained from that incision site. The incisions were copiously irrigated and a none-latex 1/4-inch [place] drain was inserted from extraoral to communicate with the intraoral incision. This [place] drain was secured with a 2-0 silk and was irrigated to determine its patency which it was. The patient was copiously irrigated intraorally again and suctioned completely dry. The surgery was then deemed complete. The patient was extubated and brought to the PACU in stable condition. The patient will remain in the hospital for approximately one to two more days to evaluate work the resolution of his submandibular abscess. The patient will then be discharged for followup with Dr. Ryan at the [facility] office as an outpatient. THALIA Calero/BLADIMIR /4:51 PM /12:24 PM
== END 2016-09-19 17:07 | disposition home or self-care (01) | DRG 854 ==
LOC: NEPA 14:09 → NEDA 19:08 → N07A 21:49
PROVIDERS: ADMIT Hospitalist; ATTEND Hospitalist
PROC: 0CTX0Z0 Resection of Lower Tooth, Single, Open Approach (ICD-10-PCS; 2016-09-18)
PROC: 0C9XXZ0 Drainage of Lower Tooth, External Approach, Single (ICD-10-PCS; 2016-09-18)
PROC: 0W9500Z Drainage of Lower Jaw with Drainage Device, Open Approach (ICD-10-PCS; principal; 2016-09-18 16:02)
DX: A41.9 Sepsis, unspecified organism (principal); K12.2 Cellulitis and abscess of mouth; I10 Essential (primary) hypertension; K02.9 Dental caries, unspecified; F17.210 Nicotine dependence, cigarettes, uncomplicated; I25.10 Atherosclerotic heart disease of native coronary artery without angina pectoris; R25.2 Cramp and spasm; E87.6 Hypokalemia; E78.5 Hyperlipidemia, unspecified; Z88.0 Allergy status to penicillin; I25.2 Old myocardial infarction; Z95.5 Presence of coronary angioplasty implant and graft; Z91.040 Latex allergy status; Z91.010 Allergy to peanuts; Z82.49 Family history of ischemic heart disease and other diseases of the circulatory system
CPT/HCPCS: 70491; 80048; 80053; 83605; 85025; 85610; 85730; 87015; 87040; 87070; 87102; 87116; 87205; 87206; 90471; 90714; 93005; C9113; J0131; J1100; J1170; J2250; J2405; J2710; J2920; J3010; J3370; J7030; J7050; Q9967